=== PATIENT | male | born 1950 | race Caucasian/White ===

== ENCOUNTER → 2021-10-01 | Outpatient (CLI) | payer MEDICARE, OTHER ==
[~2021-10-01] MED LIST: ANAPROX DS550 MG PO; ASPIR-LOW81 MG PO; BYSTOLIC5 MG PO; CENTRUM SILVER1 EAC1 PO; CRESTOR40 MG PO; ELIQUIS2.5 MG PO; FISH OIL + D31 EACH PO; FOLIC ACID 1 MG1 MG PO; GLUCOSAMINE &1 EAC1 PO; ISORDIL PO; ISOSORBIDE MONO30 MG PO; MIRAPEX1 MG PO; NEXIUM20 MG PO; NORCO 7.5-3251 EACH PO; RANEXA500 MG PO; VITAMIN B-121000 MC3 PO; VITAMIN D2000 UNI1 PO; ZETIA 10 MG TAB10 MG PO; [UNRECOGNIZED DRUG - OTHER] PO
== END ==
LOC: HEART CORB 08:41
DX: I25.10 Atherosclerotic heart disease of native coronary artery without angina pectoris (principal); R07.2 Precordial pain; I10 Essential (primary) hypertension; E78.5 Hyperlipidemia, unspecified; I49.3 Ventricular premature depolarization; Z95.1 Presence of aortocoronary bypass graft; R94.39 Abnormal result of other cardiovascular function study
CPT/HCPCS: 78452; A9502; J2785

== ENCOUNTER → 2021-10-15 | Outpatient (CLI) | payer MEDICARE, OTHER ==
[2021-10-15 17:51] LABS: HEMOGLOBIN 15.1 gm/dl (14.0-17.5); RED BLOOD COUNT 4.55 M/UL (4.20-5.50)
== END ==
LOC: RT 16:28
PROVIDERS: Internal Medicine Interventional Cardiology
DX: I25.10 Atherosclerotic heart disease of native coronary artery without angina pectoris (principal); E78.5 Hyperlipidemia, unspecified; R00.2 Palpitations; R07.2 Precordial pain; I49.3 Ventricular premature depolarization; R94.39 Abnormal result of other cardiovascular function study; Z95.1 Presence of aortocoronary bypass graft
CPT/HCPCS: 36415; 80048; 85025; 85610; 85730; 93005

== ENCOUNTER → 2021-10-27 | Outpatient (CLI) | payer MEDICARE, OTHER ==
[~2021-10-27] MED LIST changes: +LASIX TAB 20 MG20 MG PO; +LEVOTHYROXINE50 MC1 PO; +NITROSTAT0.4 MG SL; +TOPROL XL25 MG PO
== END ==
LOC: CATH 08:09
DX: I25.118 Atherosclerotic heart disease of native coronary artery with other forms of angina pectoris (principal); I10 Essential (primary) hypertension; E78.5 Hyperlipidemia, unspecified; I49.3 Ventricular premature depolarization; Z95.1 Presence of aortocoronary bypass graft; Z88.4 Allergy status to anesthetic agent; Z79.82 Long term (current) use of aspirin; Z79.899 Other long term (current) drug therapy; Z20.822 Contact with and (suspected) exposure to COVID-19
CPT/HCPCS: 99152; 99153; C1769; J1644; J2250; J3010; J7030; Q9967; U0002